=== PATIENT | male | born 1990 | race African-American/Black ===

== ENCOUNTER 2018-06-13 14:09 | Emergency (ER) | payer MEDICAID ==
[~2018-06-13] VITALS: Ht 190.5 cm; Wt 68.0 kg
[~2018-06-13 14:09] MED LIST: IBUPROFEN600 MG ORAL; NKM; NORCO 5-325 TA1 EACH ORAL; VIBRAMYCIN100 MG ORAL
[2018-06-13 14:23] VITALS: BP 100/64
[2018-06-13] MEDS ORDERED: Morphine Sulfate 4mg/ml Inj (IV USE ONLY) ONE (14:34)
[2018-06-13] MEDS ORDERED: Morphine Sulfate 2mg/ml Inj IM ONE (14:45)
--- NOTE | 2018-06-13 15:06 | Emergency Room Report ---
History of Present Illness General Chief Complaint: Male Urogenital Problems Source: Patient Present Illness HPI 27-year-old male presents to ED complaining of right testicular pain. Started 3 days ago. Patient states he's had a recent unprotected sex. Denies any discharge. Pain is sharp, 10 out of 10, nonradiating. Denies any fevers chills. Denies nausea or vomiting. No other aggravating relieving factors. Denies any other associated symptoms Allergies: Coded Allergies: No Known Allergies (Unverified , 09/07/13) Patient History Past Medical History: none Past Surgical History: none Pertinent Family History: none Social History: Denies: smoking, alcohol use, drug use Immunizations: UTD Reviewed Nursing Documentation: PMH: Agreed; PSxH: Agreed Nursing Documentation-PMH Past Medical History: No History, Except For Review of Systems All Other Systems: negative except mentioned in HPI Physical Exam Vital Signs Date Time Temp Pulse Resp B/P (MAP) Pulse Ox O2 Delivery O2 Flow Rate FiO2 06/13/18 14:16 99.9 131 18 100/64 98 Room Air 99.9 Sp02 EP Interpretation: reviewed, normal General Appearance: alert, GCS 15, non-toxic, mild distress Head: normocephalic Eyes: bilateral eye normal inspection, bilateral eye PERRL ENT: normal ENT inspection Neck: normal inspection Respiratory: normal inspection Cardiovascular #1: normal inspection Gastrointestinal: normal bowel sounds, non tender, soft, non-distended, no guarding, no rebound Rectal: deferred Genitourinary: no CVA tenderness, other - R testicle TTP Musculoskeletal: normal inspection Neurologic: alert, oriented x3, responsive, motor strength/tone normal, sensory intact, speech normal Psychiatric: normal inspection Skin: normal inspection Lymphatic: normal inspection Medical Decision Making Diagnostic Impression: Primary Impression: Epididymitis ER Course Hospital Course 27-year-old male presents to ED with right testicular pain/swelling. Differential diagnoses include: hydrocele, varicocele, epididymitis, testicular torsion Clinical course Patient placed on stretcher. After initial history and physical I ordered UA, pain meds and scrotal ultrasound. UA- no evidence of UTI Ultrasound shows R sided epididymitis, L epididymal cyst. No evidence of torsion. Good flow to both testicles. discussed findings with patient. Pain improved after medication. Patient given Rocephin/Zithromax here. Will be discharged on doxycycline. I'll provide the M.D. referrals Diagnosis - epididymitis stable and discharged to home with prescription for Tylenol #3, Doxycycline. Followup with PMD. Return to ED if symptoms recur or worsen Labs Test 06/13/18 15:20 Urine Color Pale yellow Urine Appearance Slightly cloudy Urine pH 9 (4.5-8.0) Urine Specific [place] 1.010 (1.005-1.035) Urine Protein Negative (NEGATIVE) Urine Glucose (UA) Negative (NEGATIVE) Urine Ketones Negative (NEGATIVE) Urine Blood Negative (NEGATIVE) Urine Nitrite Negative (NEGATIVE) Urine Bilirubin Negative (NEGATIVE) Urine Urobilinogen Normal MG/DL (0.0-1.0) Urine Leukocyte Esterase 1+ (NEGATIVE) Urine RBC 0-2 /HPF (0 - 0) Urine WBC 5-10 /HPF (0 - 0) Urine Squamous Epithelial Cells Occasional /LPF Urine Bacteria Few /HPF (NONE) Urine Mucus Moderate /LPF (NONE/OCC) CT/MRI/US Diagnostic Results CT/MRI/US Diagnostic Results : Imaging Test Ordered: Scrotal US Impression epididymitis on right. good color flow bilaterally. L epididymal cyst Last Vital Signs Date Time Temp Pulse Resp B/P (MAP) Pulse Ox O2 Delivery O2 Flow Rate FiO2 06/13/18 14:42 99.9 06/13/18 14:23 18 100/64 98 Room Air 06/13/18 14:16 131 Status: improved Disposition: HOME, SELF-CARE Condition: Stable Scripts Doxycycline Monohydrate* (DOXYCYCLINE MONOHYDRATE*) 100 Mg Capsule 100 MG ORAL TWICE A DAY, #14 CAP 0 Refills Prov: Carlos Higuera MD 06/13/18 Acetaminophen With Codeine (T#3) (TYLENOL #3 TAB*) Y Tab 1 TAB ORAL Q8H PRN for For Pain, #20 TAB Prov: Carlos Higuera MD 06/13/18 Referrals: [facility],REFERRING (PCP) Carlos Higuera MD Jun 13, 2018 15:06
[2018-06-13 15:40] LABS: BILIRUBIN, URINE NEGATIVE (NEGATIVE); COLOR,URINE PALE YELLOW; GLUCOSE, URINE (UA) NEGATIVE (NEGATIVE); KETONES,URINE NEGATIVE (NEGATIVE); LEUKOCYTE ESTERASE ,URINE 1+ (NEGATIVE); NITRITE,URINE NEGATIVE (NEGATIVE); PH,URINE 9 (4.5-8.0); PROTEIN,URINE NEGATIVE (NEGATIVE); UROBILINOGEN,URINE NORMAL MG/DL (0.0-1.0)
[2018-06-13 15:43] LABS: APPEARANCE,URINE SLIGHTLY CLOUDY
[2018-06-13] MEDS ORDERED: Azithromycin 250mg tab ORAL ONE (15:45)
[2018-06-13] MEDS ORDERED: Lidocaine 1% MPF 10mg/ml 5ml INJ ONE (15:45)
--- NOTE | 2018-06-13 16:02 | Diagnostic Imaging Report ---
EXAM: US Scrotum CLINICAL HISTORY: PAIN TECHNIQUE: Real-time ultrasound of the scrotum with color Doppler and image documentation. COMPARISON: Scrotal ultrasound dated 09/07/13 FINDINGS: Right testicle: Right testicle measures 3.0 x 2.6 x 2.5 cm. No evidence of torsion. Left testicle: Left testicle measures 4.4 x 2.5 x 1.9 cm. No evidence of torsion. Epididymides: Edematous and hyperemic appearance of the right epididymis relative to the left. Incidental note of a 4 mm left epididymal head cyst. Scrotum: Unremarkable. IMPRESSION: 1. Findings suggesting right epididymitis. 2. 4 mm left epididymal head cyst.
[2018-06-13 16:18] VITALS: BP 142/75
[2018-06-13] MEDS ORDERED: DOXYCYCLINE MO100 MG ORAL (16:29)
[2018-06-13] MEDS ORDERED: ACETAMINOPHEN-1 EAC1 ORAL (16:29)
[2018-06-13 16:38] VITALS: BP 142/75
== END 2018-06-13 16:38 | disposition home or self-care (01) ==
LOC: EMR 14:30
DX: N45.1 Epididymitis (principal)
CPT/HCPCS: 76870; 81003; 96372; 99284; J0696; J2270; Q0144

== ENCOUNTER 2020-03-15 22:39 | Emergency (ER) | payer MEDICAID ==
[~2020-03-15] VITALS: Ht 190.5 cm; Wt 68.0 kg
[~2020-03-15 22:39] MED LIST changes: +ACETAMINOPHEN-1 EAC1 ORAL; +DOXYCYCLINE MO100 MG ORAL
[2020-03-15 22:50] VITALS: BP 128/71
--- NOTE | 2020-03-15 22:56 | Emergency Room Report ---
History of Present Illness General Chief Complaint: Pain Source: Patient Present Illness HPI This a 29-year-old male with a history of epididymitis in the past. He presents with right testicular pain. Onset for last 2 days. He is sexually active in a monogamous relationship with his . Does not have any dysuria frequency. Right testicle is swollen. This is more than before. No discharge. Pain is 8/10. No trauma. Worse with walking. Better with rest. Allergies: Coded Allergies: No Known Allergies (Unverified , 09/07/13) COVID-19 Screening Contact w/high risk pt: No Recent Travel to affected area: No Experienced COVID-19 symptoms?: No COVID-19 Testing performed [employer]: No Patient History Past Medical History: see triage record, old chart reviewed Past Surgical History: none Pertinent Family History: none Social History: Denies: smoking Immunizations: other Reviewed Nursing Documentation: PMH: Agreed; PSxH: Agreed Nursing Documentation-PMH Past Medical History: No Stated History Review of Systems Eye: Denies: eye pain, blurred vision ENT: Denies: ear pain, nose congestion, throat swelling Respiratory: Denies: cough, shortness of breath Cardiovascular: Denies: chest pain, palpitations Gastrointestinal: Denies: abdominal pain, diarrhea, nausea, vomiting Genitourinary: Reports: pain Musculoskeletal: Denies: back pain, joint pain Skin: Denies: rash Neurological: Denies: headache, numbness Endocrine: Denies: increased thirst, increased urine Hematologic/Lymphatic: Denies: easy bruising All Other Systems: negative except mentioned in HPI Physical Exam Vital Signs Date Time Temp Pulse Resp B/P (MAP) Pulse Ox O2 Delivery O2 Flow Rate FiO2 03/15/20 22:44 100.0 120 18 128/71 (90) 98 Room Air Vitals with fever Sp02 EP Interpretation: reviewed, normal General Appearance: well appearing, no apparent distress, alert Head: normocephalic, atraumatic Eyes: bilateral eye PERRL, bilateral eye EOMI ENT: hearing grossly normal, normal pharynx Neck: full range of motion, supple, no meningismus Respiratory: chest non-tender, lungs clear, normal breath sounds Cardiovascular #1: regular rate, rhythm, no murmur Gastrointestinal: normal bowel sounds, non tender, no mass, no organomegaly, no bruit, non-distended Musculoskeletal: back normal, normal range of motion, gait/station normal Psychiatric: mood/affect normal Medical Decision Making Diagnostic Impression: Primary Impression: Epididymitis ER Course Patient presents with right testicular pain. Ultrasound showed epididymitis and hydrocele. Urine is positive. Patient denies any testicular discharge or history of STD. Never follow-up with urologist. Dose of antibiotics given here. Patient felt better now. Will discharge home. CT/MRI/US Diagnostic Results CT/MRI/US Diagnostic Results : Imaging Test Ordered: Testicular ultrasound Impression Read by radiologist. Right epididymitis and hydrocele. No torsion. Last Vital Signs Date Time Temp Pulse Resp B/P (MAP) Pulse Ox O2 Delivery O2 Flow Rate FiO2 03/15/20 22:44 100.0 120 18 128/71 (90) 98 Room Air Status: improved Disposition: HOME, SELF-CARE Condition: Stable Scripts Doxycycline Monohydrate* (DOXYCYCLINE MONOHYDRATE*) 100 Mg Capsule 100 MG ORAL Q12H, #14 CAP 0 Refills Prov: Jamir Rayo MD 03/16/20 Ibuprofen* (MOTRIN*) 600 Mg Tablet 600 MG ORAL Q6H PRN for For Pain, #30 TAB 0 Refills Prov: Jamir Rayo MD 03/16/20 Additional Instructions: Follow-up with urologist within a week. Ice pack to the area if tolerable. Return if symptoms worsen. Jamir Rayo MD Mar 15, 2020 22:56
[2020-03-15] MEDS ORDERED: Ketorolac 30mg Inj IV ONE (23:00)
[2020-03-15] MEDS ORDERED: cefTRIAXone 1 GM in NS 55 ML IVPB ONE (23:00)
[2020-03-15 23:21] LABS: APPEARANCE,URINE CLEAR; BILIRUBIN, URINE NEGATIVE (NEGATIVE); GLUCOSE, URINE (UA) NEGATIVE (NEGATIVE); KETONES,URINE 1+ (NEGATIVE); LEUKOCYTE ESTERASE ,URINE 2+ (NEGATIVE); NITRITE,URINE NEGATIVE (NEGATIVE); PH,URINE 6.5 (4.5-8.0); PROTEIN,URINE 1+ (NEGATIVE); UROBILINOGEN,URINE 1 MG/DL (0.0-1.0)
[2020-03-15 23:30] LABS: COLOR,URINE YELLOW
[2020-03-16] MEDS ORDERED: DOXYCYCLINE MO100 MG ORAL (00:26)
[2020-03-16] MEDS ORDERED: IBUPROFEN600 M1 ORAL (00:26)
[2020-03-16 00:45] VITALS: BP 118/80
--- NOTE | 2020-03-16 00:54 | Diagnostic Imaging Report ---
EXAM: US Scrotum CLINICAL HISTORY: PAIN TECHNIQUE: Real-time ultrasound of the scrotum with color Doppler and image documentation. COMPARISON: No relevant prior studies available. FINDINGS: Right testicle: Right testis measures 4.7 x 1.9 x 1.8 cm. No intratesticular mass lesion or torsion. There is hyperemia of the testis. Left testicle: Left testis measures 4.5 x 1.8 x 2.7 cm. No intratesticular mass lesion or torsion Epididymides: Thick heterogeneous and hyperemic right epididymis. Bilateral epididymal cysts Scrotum: Right hydrocele with septations. IMPRESSION: Findings suggest right epididymo-orchitis.
== END 2020-03-16 00:45 | disposition home or self-care (01) ==
LOC: EMR 23:00
DX: N45.1 Epididymitis (principal)
CPT/HCPCS: 76870; 81003; 87086; 96365; 96375; J0696; J1885; Z7502; 99284